=== PATIENT | female | born 1985 | race Caucasian/White ===

== ENCOUNTER 2016-10-01 09:31 | Emergency (ER) | payer OTHER ==
[~2016-10-01] VITALS: Ht 152.4 cm; Wt 67.8 kg
[~2016-10-01 09:31] MED LIST: CHERATUSSIN AC473 ML PO; LIDODERM 5% P1 PATCH TD; MOTRIN IB200 MG PO; MOTRIN800 MG PO; Motrin PO; NAPROSYN500 MG PO; NOHOMEMEDS; PEN-VEE K,VEET500 MG PO; PHENERGAN25 MG PR; PROMETHAZINE HC25 M1 PO; PROZAC10 MG PO; RISPERDAL0.5 MG PO; TYLENOL EXTRA500 MG PO; TYLENOL WITH C1 EACH PO; TYLENOL325 M1 PO; ULTRACET1 TABLET PO; ZITHROMAX Z-PA250 MG PO
[2016-10-01] MEDS ORDERED: AMOXICILLIN500 M1 PO (09:48)
[2016-10-01] MEDS ORDERED: TYLENOL WITH C1 EACH PO (09:48)
[2016-10-01 09:54] VITALS: BP 144/109
== END 2016-10-01 09:54 | disposition home or self-care (01) ==
LOC: EME 09:31
DX: K08.89 Other specified disorders of teeth and supporting structures (principal); K02.9 Dental caries, unspecified; H92.02 Otalgia, left ear; F17.200 Nicotine dependence, unspecified, uncomplicated
CPT/HCPCS: 99281; 99283

== ENCOUNTER 2017-04-21 22:32 | Emergency (ER) | payer OTHER ==
[~2017-04-21] VITALS: Ht 152.4 cm; Wt 67.0 kg
[~2017-04-21 22:32] MED LIST changes: +AMOXICILLIN500 M1 PO
[2017-04-21] MEDS ORDERED: VENTOLIN HFA18 GM IH (23:52)
[2017-04-22 00:23] VITALS: BP 135/89
== END 2017-04-22 00:23 | disposition home or self-care (01) ==
LOC: EME 22:32
DX: J06.9 Acute upper respiratory infection, unspecified (principal); R09.89 Other specified symptoms and signs involving the circulatory and respiratory systems; F17.210 Nicotine dependence, cigarettes, uncomplicated; Z88.6 Allergy status to analgesic agent
CPT/HCPCS: 71020; 94640; 99281; 99283